=== PATIENT | female | born 1960 | race Caucasian/White ===

== ENCOUNTER → 2017-05-28 | Outpatient (CLI) | payer OTHER ==
[~2017-05-28] MED LIST: ACTIGALL300 M1 PO; ASPIRIN LO-DOSE81 MG PO; BIOTIN PLUS-CA1 EACH PO; CIPRO500 MG PO; DELTASONE20 MG PO; DELTASONE5 MG PO; FEOSOL325 MG PO; FISH OIL1000 MG PO; K-TAB 10MEQ10 MEQ PO; LEVAQUIN750 MG PO; LEVOTHROID (SY50 MCG PO; MACROBID100 MG PO; MIRALAX17 GM PO; OSCAL + D500 MG PO; PEPCID20 MG PO; PLAQUENIL200 MG PO; PROTONIX40 MG PO; TOPROL XL25 MG PO; ULTRAM50 MG PO
== END | disposition disaster alternative care site (69) ==
LOC: GRAD 15:44
DX: M25.512 Pain in left shoulder (principal); M25.619 Stiffness of unspecified shoulder, not elsewhere classified; S43.432A Superior glenoid labrum lesion of left shoulder, initial encounter; M19.012 Primary osteoarthritis, left shoulder